=== PATIENT | male | born 1965 | race Hispanic/Latino ===

== ENCOUNTER 2023-10-07 16:45 | Emergency (ER) | payer SELFPAY ==
[~2023-10-07] VITALS: Ht 172.7 cm; Wt 85.7 kg
[2023-10-07] MEDS: EPINEPHrine PF 1MG (1:1,000) 1 MG/ML AMP IH SCH (17:30)
[2023-10-07 17:41] LABS: BASOPHILS # (AUTO) 0.05 K/uL (0.00-0.20); BASOPHILS % (AUTO) 0.4 % (0.0-5.0); EOSINOPHILS # (AUTO) 0.06 K/uL (0.00-0.70); EOSINOPHILS % (AUTO) 0.4 % (0.0-8.0); HEMATOCRIT 46.4 % (42-54); IMMATURE GRANULOCYTE ABSOLUTE 0.09 K/uL (0-1); LYMPHOCYTES # (AUTO) 1.3 K/uL (1.0-4.8); LYMPHOCYTES % (AUTO) 9.4 % (21.0-51.0); MEAN CORPUSCULAR HEMOGLOBIN 30.6 pg (27.0-33.0); MEAN CORPUSCULAR HGB CONC 34.3 g/dL (32.0-36.0); MEAN CORPUSCULAR VOLUME 89.2 fL (79-99); MONOCYTES # (AUTO) 0.4 K/uL (0.1-1.0); MONOCYTES % (AUTO) 2.5 % (3.0-13.0); NEUTROPHILS # (AUTO) 12.1 K/uL (1.8-7.7); NEUTROPHILS % (AUTO) 86.7 % (40.0-77.0); PLATELET COUNT (AUTO) 238 K/uL (130-400); RED CELL DISTRIBUTION WIDTH 11.9 % (11.0-15.5)
[2023-10-07 17:52] LABS: CREATININE 1.1 mg/dL (0.5-1.3); POTASSIUM 4.4 mmol/L (3.5-5.1)
[2023-10-07] MEDS: Solu-medROL 125MG VIAL IVP ONE (17:52)
[2023-10-07] MEDS: FAMOTIDINE 20MG VIAL IV ONE (17:52)
[2023-10-07] MEDS: DiphenhydrAMINE HCL 50 MG/ML VIAL IV ONE (17:52)
[2023-10-07 18:02] LABS: ALBUMIN 4.5 g/dL (3.5-5.0); BILIRUBIN,TOTAL 1.6 mg/dL (0.2-1.0); TOTAL PROTEIN, SERUM 8.3 g/dL (6.0-8.3)
[2023-10-07] MEDS: RACEPINEPHRINE HCL 2.25% 0.5 ML NEB SOLN ONE (18:26)
[2023-10-07 18:27] VITALS: PULSE 84; RESP 19
[2023-10-07] MEDS: clonazePAM 0.5 MG TABLET PO STA (18:44)
[2023-10-07] MEDS: KETOROLAC 15MG/ML VIAL (15MG/ML) IM STA (18:44)
[2023-10-07 21:16] LABS: APPEARANCE,URINE CLEAR (CLEAR); BILIRUBIN,URINE NEGATIVE (NEGATIVE); COLOR,URINE YELLOW (YELLOW); GLUCOSE, URINE (UA) NEGATIVE (NEGATIVE); KETONES,URINE 10 mg/dL (NEGATIVE); LEUKOCYTE ESTERASE ,URINE NEGATIVE Leu/uL (NEGATIVE); NITRATE,URINE NEGATIVE (NEGATIVE); OCCULT BLOOD,URINE NEGATIVE (NEGATIVE); PH,URINE 5.5 (5.0-8.0); PROTEIN,URINE 50 mg/dL (NEGATIVE)
[2023-10-07 21:17] LABS: ADD UA MICROSCOPIC YES
[2023-10-07 21:31] LABS: BACTERIA,URINE Rare /HPF (None Seen); MUCUS,URINE Rare LPF (None Seen)
[2023-10-07 21:42] LABS: AMPHET/METH SCREEN,URINE NEGATIVE (NEGATIVE); BARBITURATE SCREEN, URINE NEGATIVE (NEGATIVE); BENZODIAZEPINES SCREEN,URINE NEGATIVE (NEGATIVE); CANNABINOID SCREEN,URINE NEGATIVE (NEGATIVE); COCAINE SCREEN,URINE NEGATIVE (NEGATIVE); OPIATE SCREEN,URINE NEGATIVE (NEGATIVE); PHENCYCLIDINE SCREEN,URINE NEGATIVE (NEGATIVE)
[2023-10-07 22:18] VITALS: BP 148/70; PULSE 78; RESP 18; O2SAT 96
== END 2023-10-07 22:24 | disposition home or self-care (01) ==
LOC: EDH 16:45
DX: T63.461A Toxic effect of venom of wasps, accidental (unintentional), initial encounter (principal); R07.89 Other chest pain; F41.9 Anxiety disorder, unspecified; Z79.899 Other long term (current) drug therapy; Y92.89 Other specified places as the place of occurrence of the external cause
CPT/HCPCS: 99285; 96374; 96375; 71045; 84484 ×2; 80053; 80305; 85025; 36415; 93005 ×2; 94640; 96372; 81001; J1200; J3490; J2919; J1885

== ENCOUNTER 2024-03-24 07:58 | Day surgery (SDC) | payer OTHER ==
[2024-03-24 08:55] LABS: HEMATOCRIT 47.2 % (42-54); MEAN CORPUSCULAR HEMOGLOBIN 30.1 pg (27.0-33.0); MEAN CORPUSCULAR HGB CONC 33.3 g/dL (32.0-36.0); MEAN CORPUSCULAR VOLUME 90.4 fL (79-99); RED BLOOD CELL COUNT(AUTO) 5.22 MIL/uL (4.50-6.20); RED CELL DISTRIBUTION WIDTH 12.3 % (11.0-15.5); WHITE BLOOD COUNT (AUTO) 7.3 K/uL (4.8-10.8)
[2024-03-24 09:03] LABS: INR 1.06 (0.85-1.15); PROTHROMBIN TIME 11.8 SEC (9.6-11.6)
[2024-03-24 09:04] LABS: PARTIAL THROMBOPLASTIN TIME 29.6 SEC (26.3-35.5)
[2024-03-24] MEDS ORDERED: LEVO25TA9 PO (09:41)
[2024-03-24] MEDS ORDERED: LISI20TA24 PO (09:41)
--- NOTE | 2024-03-24 10:17 | NUR ---
U/S GD RANDOM LIVER BX
--- NOTE | 2024-03-24 10:17 | NUR ---
U/S GD RANDOM LIVER BX TOLERATED PROCEDURE. PERFORMED BY DR Uday HARO. PUNCTURE SITE TO RUQ. X4 SPECIMEN REMOVED AND SENT TO LAB. FLOSEAL INJECTED AND END OF PROCEDURE AT 1007. NO SEDATION GIVEN. REPORT GIVEN TO Kavya VENEGAS RN. PT A&O. DENIES PAIN. TRANSPORTED TO DAY PT VIA BED.
[2024-03-24 10:34] VITALS: BP 106/66; PULSE 60; RESP 15; TEMP 97.4
[2024-03-24 10:45] VITALS: BP 106/66; PULSE 60; RESP 15
[2024-03-24 11:00] VITALS: BP 108/70; PULSE 60; RESP 15
[2024-03-24 11:15] VITALS: BP 105/66; PULSE 60; RESP 14
[2024-03-24 11:45] VITALS: BP 116/70; PULSE 62; RESP 15
--- NOTE | 2024-03-24 14:10 | HMCIMG ---
US BIOPSY LIVER IR HISTORY: Hepatic fibrosis COMPARISON: None TECHNIQUE: Informed consent was obtained. Risks and benefits were explained to the patient. A timeout was performed. Patient was prepped and draped in a sterile fashion. Local anesthetics was given as required. Under ultrasound guidance, right inferior hepatic lobe was localized. Under ultrasound guidance, core biopsy was performed with 20-gauge biopsy gun with coaxial arrangement. At the end of procedure, hemostasis was achieved. FINDINGS: Patient tolerated procedure without complication. Patient left the department in good condition. IMPRESSION: 1. Uncomplicated ultrasound guidance liver biopsy.
== END 2024-03-24 11:54 | disposition home or self-care (01) ==
LOC: RAH 07:58 → EDSTATUS 08:00 → RAH 11:54
PROVIDERS: ATTEND Internal Medicine Gastroenterology
DX: K74.00 Hepatic fibrosis, unspecified (principal); K73.8 Other chronic hepatitis, not elsewhere classified; I10 Essential (primary) hypertension; E78.2 Mixed hyperlipidemia; E03.9 Hypothyroidism, unspecified; E66.9 Obesity, unspecified; Z68.30 Body mass index [BMI] 30.0-30.9, adult; Z79.82 Long term (current) use of aspirin; Z79.899 Other long term (current) drug therapy
CPT/HCPCS: 47000; 85027; 85610; 85730; 36415; 88313; 88307; 76942; C1887; C2615; A4215; A4222; A4221; A4663; A4216; A4606; A4223 ×3